=== PATIENT | female | born 1995 | race Two or more races ===

== ENCOUNTER 2018-07-18 13:43 | Emergency (ER) | payer MEDICAID ==
[~2018-07-18] VITALS: Ht 165.1 cm; Wt 86.2 kg
[~2018-07-18 13:43] MED LIST: LEVA0.31
[2018-07-18 14:24] LABS: Urine WBC None Seen /hpf (0 - 5)
[2018-07-18 14:27] LABS: Basophils # (auto) 0 uL; Basophils % (auto) 0.5 % (0.0-2.0); Eosinophils # (auto) 0.1 uL; Eosinophils % (auto) 1.1 % (0.0-7.0); Hematocrit 42.8 % (36.0-46.0); Hemoglobin 13.9 g/dL (12.2-16.2); Lymphocytes # (auto) 1.6 uL; Lymphocytes % (auto) 24.8 % (10.0-50.0); Mean Corpuscular Hemoglobin 28.1 pg (28.0-32.0); Mean Corpuscular Hgb Conc. 32.5 g/dL (32.0-36.0); Mean Corpuscular Volume 86.5 fL (80.0-100.0); Monocytes # (auto) 0.6 uL; Monocytes % (auto) 8.5 % (0.0-12.0); Neutrophils # (auto) 4.2 uL; Neutrophils % (auto) 65.1 % (37.0-80.0); Nucleated Red Blood Cells % 0.1 %; Platelet Count (auto) 370 10^3/uL (140-450); Red Blood Cells 4.95 10^6/uL (4.0-5.20); Red Cell Distribution Width 13.7 % (11.8-14.3); White Blood Cell 6.5 10^3/uL (4.4-10.8)
[2018-07-18 14:32] LABS: Urine Bacteria NONE SEEN /hpf (None Seen); Urine Blood Negative /uL (Negative); Urine Mucus FEW (None Seen); Urine Specific Gravity 1.013 (1.001-1.035)
[2018-07-18 14:53] LABS: Albumin 3.8 g/dL (3.4-5.0); BUN/Creatinine Ratio 9.6; Bilirubin, Total 0.3 mg/dL (0.2-1.0); Calcium 8.5 mg/dL (8.5-10.1); Potassium 3.8 mmol/L (3.5-5.1); Total Protein 8.3 g/dL (6.4-8.2)
[2018-07-18 16:57] VITALS: BP 112/70
== END 2018-07-18 16:59 | disposition home or self-care (01) ==
LOC: ER 13:45
DX: R42 Dizziness and giddiness (principal); J45.909 Unspecified asthma, uncomplicated; R07.9 Chest pain, unspecified
CPT/HCPCS: 36415; 80053; 81001; 81025; 85025; 93005